=== PATIENT | male | born 1945 | race Caucasian/White ===

== ENCOUNTER 2016-06-15 13:40 | Emergency (ER) | payer OTHER ==
[~2016-06-15] VITALS: Ht 172.7 cm; Wt 100.0 kg
[~2016-06-15 13:40] MED LIST: ARTH650T6 PO; ERGO2000 PO; HYDR-3533 PO; TAMS0.4C67 PO; VITA50LO PO; ZOFR4TAB3 SL
[2016-06-15 13:47] VITALS: BP 194/109; PULSE 109; RESP 28; TEMP 97.8; O2SAT 93
[2016-06-15 14:03] VITALS: BP 144/77; PULSE 104; RESP 19; O2SAT 96
[2016-06-15] MEDS ORDERED: METF500T PO (14:07)
[2016-06-15] MEDS ORDERED: CHOLESTEROL PILL (14:07)
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
[2016-06-15 15:17] LABS: BLOOD, URINE NEG (NEG); COMMENT (UR) CULT NOT INDICATED; CULTURE IF INDICATED CULT NOT INDICATED; GLUCOSE,URINE 1000 mg/dL (NEG); KETONE, URINE TRACE mg/dL (NEG); MUCUS URINE FEW /lpf (OCC); NITRITE,URINE NEG (NEG); PH, URINE 5.5 (5.0-8.5); SQUAMOUS EPITHELIAL CELL URINE <1 /hpf (0-5); URINE COLOR YELLOW (YELLW/STRAW)
[2016-06-15 16:00] VITALS: BP 146/79; PULSE 97; RESP 18; O2SAT 97
--- NOTE | 2016-06-15 16:31 | RADRPT ---
EXAM DATE/TIME: 06/15/2016 15:03 [facility] COMPARISON: No previous studies available for comparison. INDICATIONS : Testicular pain. MEDICAL HISTORY : Hypercholesterolemia. Diverticulitis. Inflammatory bowel disease. Muscular pain. Diabetes. Arthritis. SURGICAL HISTORY : None. ENCOUNTER: Initial ACUITY: 2 days PAIN SCORE: 5/10 LOCATION: Bilateral scrotum. MEASUREMENTS: RIGHT TESTICLE: 4.0 x 3.3 x 2.2cm LEFT TESTICLE: 2.6 4.4 x 2.5cm FINDINGS: Positive blood flow to both testicles. Multiple cysts right epididymis largest measuring up to 5 mm a nd 4 mm in diameter. There is a large cystic structure in the left epididymal region measuring up to 4.8 x 4 cm. No hydrocele or varicocele. No solid testicular mass. CONCLUSION: 1. Bilateral epididymal cysts, largest on the left side measuring up to 4 x 2.4 x 4.8 cm. 2. Positive testicular blood flow without testicular mass, hydrocele or varicocele. Vitor Roberto MD on June 15, 2016 at 16:28 Board Certified Radiologist. This report was verified electronically.
== END 2016-06-15 17:00 | disposition home or self-care (01) ==
LOC: NEPE 13:40
DX: N50.3 Cyst of epididymis (principal)
CPT/HCPCS: 76870; 81001; 93975